=== PATIENT | female | born 1985 | race Caucasian/White ===

== ENCOUNTER 2017-01-14 09:56 | Emergency (ER) | payer BC ==
[~2017-01-14] VITALS: Ht 167.6 cm; Wt 88.7 kg
[2017-01-14 09:59] VITALS: TEMP 37; Ht 167.6 cm; Wt 88.7 kg
[2017-01-14] MEDS ORDERED: ONDANSETRON INJ 2 MG/ML 2 ML VIAL IV STA (10:12)
[2017-01-14] MEDS ORDERED: SODIUM CHLORIDE 0.9% 1000ML 1,000 ML IV STA (10:12)
--- NOTE | 2017-01-14 10:17 | EMERGENCY ROOM VISIT NOTE ---
History First contact with patient: 10:05 Chief Complaint: FLU LIKE SX Stated Complaint: V,N, CHILLS, ACHES History of Present Illness The patient is a 31 year old female who presents to the Emergency Room with complaints of flulike symptoms. The patient states her symptoms started 2 days ago. She states she initially had arthralgias, myalgias, chills, nausea and fever with temperature over 100F. She states that today she developed vomiting and diarrhea. She states she has taken Pepto-Bismol. She has not had Tylenol or ibuprofen since last night. She denies any earache, sore throat or cough. She denies any pain in her chest or trouble breathing. She denies any recent antibiotic use or travel. Review of Systems A 10 system review of systems was completed with positives and pertinent negatives listed in the HPI. Past Medical/Surgical History Patient denies Social History Smoking Status: Never Smoker Housing Status: lives with family Current/Historical Medications Scheduled Control Pills ( Control Pills), 1 TAB PO DAILY Ondasetron Odt (Zofran Odt), 4 MG SL Q6H Allergies Coded Allergies: No Known Allergies (Unverified , 01/14/17) Physical Exam Vital Signs Date Time Temp Pulse Resp B/P Pulse Ox O2 Delivery O2 Flow Rate FiO2 01/14/17 12:28 74 16 134/74 98 01/14/17 09:59 37.0 119 18 148/106 98 Room Air Physical Exam VITALS: Vitals are noted on the nurse's note and reviewed by myself. Vital signs stable. The patient is afebrile. GENERAL: This is a 31-year-old female, in no acute distress, nondiaphoretic, well-developed well-nourished. SKIN: The skin was without rashes, erythema, edema, or bruising. There is no tenting of the skin. Capillary reflex less than 2 seconds. HEAD: Normocephalic atraumatic. EARS: External auditory canals clear, tympanic membranes pearly casanova without erythema or effusion bilaterally. EYES: Pupils equal round and reactive to light and accommodation. Conjunctivae without injection, sclerae without icterus. Extraocular movements intact. NOSE: Patent, turbinates without inflammation or discharge. MOUTH: Mucous membranes moist. Tonsils are not enlarged. Pharynx without erythema or exudate. Uvula midline. Airway patent. Tongue does not deviate. NECK: Supple without nuchal rigidity. No JVD. HEART: Regular rate and rhythm without murmurs gallops or rubs. LUNGS: Clear to auscultation bilaterally without wheezes, rales or rhonchi. No retractions or accessory muscle use. ABDOMEN: Positive bowel sounds x 4. Soft, mild diffuse tenderness, without masses or organomegaly. MUSCULOSKELETAL: No muscle atrophy, erythema, or edema noted. Full range of motion in all extremities. Normal gait. Strength 5/5 throughout. NEURO: Patient was alert and oriented to person place and time. No focal neurological deficits. Medical Decision & Procedures Laboratory Results 01/14/17 10:15 Red Blood Count 5.45, Mean Corpuscular Volume 81.1, Mean Corpuscular Hemoglobin 29.0, Mean Corpuscular Hemoglobin Concent 35.7, Mean Platelet Volume 10.2, Neutrophils (%) (Auto) 84.0, Lymphocytes (%) (Auto) 7.6, Monocytes (%) (Auto) 7.7, Eosinophils (%) (Auto) 0.4, Basophils (%) (Auto) 0.1, Neutrophils # (Auto) 9.54, Lymphocytes # (Auto) 0.86, Monocytes # (Auto) 0.87, Eosinophils # (Auto) 0.04, Basophils # (Auto) 0.01 01/14/17 10:15 Test 01/14/17 00:00 01/14/17 10:05 01/14/17 10:15 Urine Color YELLOW Urine Appearance SL CLOUDY (CLEAR) Urine pH 6.0 (4.5-7.5) Urine Specific [place] >= 1.030 (1.000-1.030) Urine Protein NEG (NEG) Urine Glucose (UA) NEG (NEG) Urine Ketones 3+ (NEG) Urine Occult Blood 1+ (NEG) Urine Nitrite NEG (NEG) Urine Bilirubin NEG (NEG) Urine Urobilinogen NEG (NEG) Urine Leukocyte Esterase TRACE (NEG) Urine WBC (Auto) 10-30 /hpf (0-5) Urine RBC (Auto) 5-10 /hpf (0-4) Urine Hyaline Casts (Auto) 10-30 /lpf (0-5) Urine Epithelial Cells (Auto) >30 /lpf (0-5) Urine Bacteria (Auto) 3+ (NEG) Urine Test NEG (NEG) Influenza Type A Antigen Neg for Influ A (NEG) Influenza Type B Antigen Neg for Influ B (NEG) White Blood Count 11.34 K/uL (4.8-10.8) Red Blood Count 5.45 M/uL (4.2-5.4) Hemoglobin 15.8 g/dL (12.0-16.0) Hematocrit 44.2 % (37-47) Mean Corpuscular Volume 81.1 fL (80-100) Mean Corpuscular Hemoglobin 29.0 pg (25-34) Mean Corpuscular Hemoglobin Concent 35.7 g/dl (32-36) Platelet Count 222 K/uL (130-400) Mean Platelet Volume 10.2 fL (7.4-10.4) Neutrophils (%) (Auto) 84.0 % Lymphocytes (%) (Auto) 7.6 % Monocytes (%) (Auto) 7.7 % Eosinophils (%) (Auto) 0.4 % Basophils (%) (Auto) 0.1 % Neutrophils # (Auto) 9.54 K/uL (1.4-6.5) Lymphocytes # (Auto) 0.86 K/uL (1.2-3.4) Monocytes # (Auto) 0.87 K/uL (0.11-0.59) Eosinophils # (Auto) 0.04 K/uL (0-0.5) Basophils # (Auto) 0.01 K/uL (0-0.2) RDW Standard Deviation 37.8 fL (36.4-46.3) RDW Coefficient of Variation 12.8 % (11.5-14.5) Immature Granulocyte % (Auto) 0.2 % Immature Granulocyte # (Auto) 0.02 K/uL (0.00-0.02) Anion Gap 15.0 mmol/L (3-11) Est Creatinine Clear Calc Drug Dose 115.7 ml/min Estimated GFR () 115.6 Estimated GFR (Non- 99.8 BUN/Creatinine Ratio 11.8 (10-20) Calcium Level 9.0 mg/dl (8.5-10.1) Total Bilirubin 0.4 mg/dl (0.2-1) Aspartate Amino Transf (AST/SGOT) 20 U/L (15-37) Alanine Aminotransferase (ALT/SGPT) 23 U/L (12-78) Alkaline Phosphatase 64 U/L (45-117) Total Protein 7.7 gm/dl (6.4-8.2) Albumin 3.6 gm/dl (3.4-5.0) Globulin 4.1 gm/dl (2.5-4.0) Albumin/Globulin Ratio 0.9 (0.9-2) Lipase 79 U/L (73-393) Chemistry Specimen Hemolysis Medications Administered Medications (Trade) Dose Ordered Sig/Arley Route Start Time Stop Time Status Last Admin Dose Admin Sodium Chloride (Nss 1000ml) 1,000 ml @ 999 mls/hr Q1H1M STAT IV 01/14/17 10:12 01/14/17 11:12 DC 01/14/17 10:26 999 MLS/HR Ondansetron HCl (Zofran Inj) 4 mg NOW STAT IV 01/14/17 10:12 01/14/17 10:13 DC 01/14/17 10:12 4 MG ED Course The patient was seen and examined. Previous visits were reviewed. She has a very mild leukocytosis of 11.34. She does not have any significant electrolyte abnormalities. Lipase was not elevated. Urinalysis suggests contamination. The patient does not have any urinary symptoms. We will await urinary culture. Urine test was negative. Influenza was negative. The patient was hydrated with 1 L normal saline and given 4 mg IV Zofran. Her symptoms completely resolved. The patient presents to the emergency department with nausea, vomiting, diarrhea and diffuse crampy abdominal pain. She weighs treated as above. The patient's symptoms completely resolved and I did do a repeat abdominal examination. The patient had no tenderness to palpation whatsoever after the above treatment. This likely represents a viral gastroenteritis. The patient was given a prescription for Zofran. She should return with any localized abdominal pain, fever or worsening symptoms. Otherwise, she should follow-up with her family doctor as needed. Medical Decision DIFFERENTIAL DIAGNOSIS: Hepatitis, cholecystitis, cholangitis, biliary colic, pancreatitis, pneumonia, subdiaphragmatic abscess, appendicitis, inguinal hernia , nephrolithiasis, inflammatory bowel disease, mesenteric adenitis, peptic ulcer disease, GERD, gastritis, pancreatitis, myocardial infarction, pericarditis, ruptured aortic aneurysm, appendicitis, gastroenteritis, bowel obstruction, splenic infarct, diverticulitis, mesenteric ischemia, metabolic, peritonitis, among others. Impression Primary Impression: Nausea vomiting and diarrhea Departure Information Dispostion Home / Self-Care Condition GOOD Prescriptions Ondasetron Odt (ZOFRAN ODT) 4 Mg Tab 4 MG SL Q6H for Nausea, #10 TAB Prov: Karen Rodriguez PA-C 01/14/17 Referrals No Doctor, Assigned (PCP) Patient Instructions ED Nausea Vomiting, My [facility] Additional Instructions Zofran as prescribed, as needed for nausea and vomiting [place] diet and advance the diet as tolerated over the next 24-48 hours Return with any fevers, localized abdominal pain or generalized worsening symptoms Otherwise, follow up with your family doctor next week for recheck
[2017-01-14] MEDS ORDERED: BCPILLS PO (10:28)
[2017-01-14 10:31] LABS: BASO % 0.1 %; BASO ABS # 0.01 K/uL (0-0.2); COMPLETE YES; EOS % 0.4 %; HEMATOCRIT 44.2 % (37-47); IG% 0.2 %; LYMPH % 7.6 %; LYMPH ABS # 0.86 K/uL (1.2-3.4); MEAN CELL VOLUME 81.1 fL (80-100); MEAN CORPUSCULAR HGB CONC 35.7 g/dl (32-36); MEAN PLATELET VOLUME 10.2 fL (7.4-10.4); MONO % 7.7 %; PLATELET COUNT 222 K/uL (130-400); RED BLOOD COUNT 5.45 M/uL (4.2-5.4); WHITE BLOOD COUNT 11.34 K/uL (4.8-10.8)
[2017-01-14 11:15] LABS: ALB/GLOB RATIO 0.9 (0.9-2); BUN/CREATININE RATIO 11.8 (10-20); CREATININE 0.79 mg/dl (0.60-1.20)
[2017-01-14 11:27] LABS: POTASSIUM 3.6 mmol/L (3.5-5.1)
[2017-01-14 12:02] LABS: URINE APPEARANCE SL CLOUDY (CLEAR); URINE BILIRUBIN NEG (NEG); URINE COLOR YELLOW; URINE NITRITE NEG (NEG); URINE SPECIFIC GRAVITY >= 1.030 (1.000-1.030); UROBILINOGEN NEG (NEG)
[2017-01-14] MEDS ORDERED: ONDA4TAB10 SL (12:04)
[2017-01-14 12:06] LABS: MANUAL MICROSCOPIC REQUIRED? NO; REVIEW REQ? YES; URINE EPITHELIAL CELL AUTO >30 /lpf (0-5)
[2017-01-14 12:14] LABS: ZZUR CULT IF INDIC CLEAN CATCH YES
[2017-01-14 12:28] VITALS: BP 134/74; PULSE 74; O2SAT 98
== END 2017-01-14 12:40 | disposition home or self-care (01) ==
LOC: C.EDB 09:59
DX: R11.2 Nausea with vomiting, unspecified (principal); R19.7 Diarrhea, unspecified; Z79.3 Long term (current) use of hormonal contraceptives

== ENCOUNTER 2023-05-06 17:36 | Inpatient (IN) ==
[2023-05-06] MEDS ORDERED: LIDOCAINE 1% LOCAL 20 ML VIAL INFIL PRN (17:48)
[2023-05-06] MEDS ORDERED: OXYTOCIN 30 UNITS/500 ML BAG IV PRN ×2 (17:48→18:09)
--- NOTE | 2023-05-06 18:12 | History & Physical Report ---
Date of Service May 06, 2023 Assessment & Plan (1) Supervision of elderly primigravida: Plan: IUP at 40-3/7 weeks with grossly ruptured membranes for clear fluid. We will allow to ambulate for 2 hours and if no regular contraction pattern at that time, we will begin Pitocin augmentation. Epidural when requested. Anticipate vaginal . History of Present Illness Primary Care Provider: Alina Gilliland MD Patient is a 38 yo female EDC 05/03/23 who presents at 40 3/7 weeks with SPROM for clear fluid at about 5pm today. no contractions or cramping yet. is complicated by obesity for which she had growth scans and the infant is known to to have appropriate growth. She also is on metoprolol for recurrent PVCs. GBS is negative. Blood type is O+. Allergies Allergy/AdvReac Type Severity Reaction Status Date / Time No Known Drug Allergies Allergy Verified 05/03/23 08:30 Home Medications Medication Instructions Recorded Confirmed Type prenat.vits,camden,nyu-iryq-rdolf PO 07/17/22 05/03/23 History cholecalciferol (vitamin D3) PO 09/14/22 05/03/23 History levothyroxine PO 09/14/22 05/03/23 History magnesium PO 02/09/23 05/03/23 History metoprolol tartrate PO PRN PVC's 02/09/23 05/03/23 History potassium chloride PO 02/09/23 05/03/23 History aspirin 81 mg tablet,delayed 81 mg PO DAILY 02/23/23 05/06/23 History release (Adult Low Dose Aspirin) Patient History Surgical History H/O wisdom tooth extraction Hx of cholecystectomy Family History Other Heart disease Denies family history of Ovarian cancer Breast cancer Colorectal cancer Social History Smoking Status: Never smoker Do You Dip or Chew Tobacco: No; Hx Alcohol Use: No Hx Substance Use: No Preferred Language: Urdu Communication Ability: Effective Sign Language Interpreter Required: No Beliefs That Will Affect Care: None marital status: marital status details: Prashant (42) [phone] Current Living Situation: Spouse Current Living Situation Comment: lives with spouse, 1 dog. 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 Other Information That Helps Us Care for You: No Feels Safe at Home: Yes Safety Concerns: Feels Safe At This Time Assistive Devices: None Review of Systems All systems reviewed & are unremarkable except as noted in HPI & below Physical Exam Constitutional: WD/WN, vitals as above Psychiatric: A+Ox3, euthymic affect Genitourinary: OB Exam Abdomen: + vertex, + estimated weight (7-8 pounds) and + irregular contractions Manual OB Exam: + cervical dilation 1 cm (1.5 cm), + cervical effacement 70%, + station -2 and + amniotic fluid (grossly ruptured) clear Results & Data Vital Signs (Past 12 Hours) Vital Signs Pulse BP 05/06/23 18:03 93 H 157/74 H Coding Level of Care Code None Diagnoses Supervision of elderly primigravida O09.519
[2023-05-06 18:47] LABS: Hemoglobin 13.6 g/dl (12.0-16.0); Mean Corpuscular Hemoglobin 28.2 pg (25.0-34.0); Mean Corpuscular Volume 82.8 fL (80.0-100.0); Mean Platelet Volume 11.1 fL (9.4-12.4); Platelet Count 248 K/uL (130-400); RDW Coefficient of Variation 14.6 % (11.5-14.5); RDW Standard Deviation 43.8 fL (36.4-46.3); Red Blood Count 4.83 M/uL (4.20-5.40); White Blood Count 11.15 K/ul (4.8-10.8)
[2023-05-06] MEDS: LACTATED RINGER'S 1,000 ML IV PRN (20:28)
[2023-05-06] MEDS ORDERED: SODIUM CHLORIDE 0.9% PF INJ 10 ML VIAL ONE (23:08)
[2023-05-06] MEDS ORDERED: LIDOCAINE 2%/EPINEPHRINE 1:200,000 20 ML PF ONE (23:08)
[2023-05-06] MEDS ORDERED: BUPIVACAINE 0.25% PF 30 ML VIAL ONE (23:08)
[2023-05-06] MEDS ORDERED: ePHEDrine sulfate 50 MG/ML AMP ONE (23:08)
[2023-05-06] MEDS ORDERED: fentaNYL citrate PF 100 MCG/2 ML VIAL ONE (23:08)
[2023-05-06] MEDS ORDERED: fentaNYL 2MCG/ML ROPIVACAINE 1.25MG/ML 100 ML BAG EPI ONE (23:09)
--- NOTE | 2023-05-07 00:01 | Anesthesiology Consultation ---
Date of Service May 07, 2023 Assessment & Plan Chart Review Chart Review: Patient NOT seen in Pre Admission Testing and Acceptable Risk for Labor Epidural Consults Requested none ASA ASA2 Proposed Anesthesia Anesthesia Type: Labor Epidural Risk / Benefits Reviewed With: PT / POA / Parent / Guardian, Accepts Plan and Informed Consent Obtained History Height/Weight Height: 5 ft 6 in Weight: 254 kg Allergies Allergy/AdvReac Type Severity Reaction Status Date / Time No Known Drug Allergies Allergy Verified 05/03/23 08:30 Medications Home Medications Medication Instructions Recorded Confirmed Last Taken prenat.vits,camden,ilj-zsol-uymig PO 07/17/22 05/03/23 05/06/23 12:00 cholecalciferol (vitamin D3) PO 09/14/22 05/03/23 05/02/23 levothyroxine PO 09/14/22 05/03/23 05/06/23 06:00 magnesium PO 02/09/23 05/03/23 05/05/23 14:00 metoprolol tartrate PO PRN PVC's 02/09/23 05/03/23 05/05/23 23:00 potassium chloride PO 02/09/23 05/03/23 05/05/23 14:00 aspirin 81 mg tablet,delayed 81 mg PO DAILY 02/23/23 05/06/23 05/06/23 12:00 release (Adult Low Dose Aspirin) Active Medications Generic Name Dose Route Start Last Admin Trade Name Freq PRN Reason Stop Dose Admin Lactated Ringer's 1,000 mls @ 125 mls/hr 05/06/23 17:48 05/06/23 23:11 Lr IV 05/08/23 17:47 999 mls/hr .Q8H PRN Infusion L&D Protocol Protocol Oxytocin 30 units in 500 mls @ 4 mls/hr 05/06/23 18:09 05/06/23 21:00 Pitocin IV 05/08/23 18:08 0.24 units/hr .Q24H PRN 4 mls/hr Labor Induction/Augmentation Titration Protocol 0.24 UNITS/HR Exercise / Class Metabolic Activity II 4-5 Yardwork/Stairs/Walk up hill Past Family History Family History Other Heart disease Denies family history of Ovarian cancer Breast cancer Colorectal cancer Past Surgical History Surgical History H/O wisdom tooth extraction Hx of cholecystectomy Past Anesthesia History No Hx of Anesthesia Complications and No Family Hx of Anesthesia Complications History of PONV No Hx of PONV and No Hx of Motion Sickness Social History Smoking Status: Never smoker Do You Dip or Chew Tobacco: No Hx Alcohol Use: No Hx Substance Use: No Physical Exam Vital Signs Last Vital Signs Temp 37.0 C 05/06/23 21:35 Pulse 90 05/06/23 23:59 Resp 18 05/06/23 19:36 BP 128/76 05/06/23 23:59 Pulse Ox 99 05/06/23 23:58 ENMT Mouth: no dentition abnormality Thyromental Distance: > or= 3.5 Finger Breadths Mallampati Class: II Neck normal visual inspection Respiratory normal respiratory effort Auscultation: lungs clear to auscultation bilaterally Cardiovascular Rate/Rhythm: regular rate and regular rhythm Psychiatric Orientation: alert Testing Laboratory Results 05/06/23 18:28
[2023-05-07] MEDS ORDERED: BUPIVACAINE 0.25% PF 30 ML VIAL EPI STA (00:02)
[2023-05-07] MEDS ORDERED: diphenhydrAMINE 50 MG/ML VIAL IV PRN ×2 (00:02→17:47)
[2023-05-07] MEDS ORDERED: ePHEDrine sulfate 50 MG/ML AMP IV PRN ×2 (00:02→17:47)
[2023-05-07] MEDS ORDERED: NALOXONE HCL 0.4 MG/1 ML VIAL/CARP IV PRN ×2 (00:02→17:47)
[2023-05-07] MEDS ORDERED: NALOXONE HCL 1 MG in SODIUM CHLORIDE 0.9% 1000ML 1,000 ML IV PRN ×2 (00:02→17:47)
[2023-05-07] MEDS ORDERED: BUPIVACAINE 0.25% PF 30 ML VIAL EPI PRN (00:02)
[2023-05-07] MEDS ORDERED: fentaNYL citrate PF 100 MCG/2 ML VIAL EPI STA (00:02)
[2023-05-07] MEDS ORDERED: LIDOCAINE 2% MPF LOCAL 5 ML VIAL EPI PRN (00:02)
[2023-05-07] MEDS ORDERED: NALBUPHINE HCL INJ 10 MG/ML AMP IV PRN ×2 (00:02→17:47)
[2023-05-07] MEDS ORDERED: ROPIVACAINE 0.5% PF 5 MG/ML 20 ML VIAL EPI PRN (00:02)
[2023-05-07] MEDS ORDERED: LIDOCAINE 2%/EPINEPHRINE 1:200,000 20 ML PF EPI STA (00:02)
[2023-05-07] MEDS ORDERED: SODIUM CHLORIDE 0.9% PF INJ 10 ML VIAL EPI PRN (00:02)
[2023-05-07] MEDS ORDERED: SODIUM CHLORIDE 0.9% PF INJ 10 ML VIAL EPI STA (00:02)
[2023-05-07] MEDS ORDERED: fentaNYL citrate PF 100 MCG/2 ML VIAL EPI PRN (00:02)
[2023-05-07] MEDS: LACTATED RINGER'S 1,000 ML IV PRN ×2 (00:22→07:57)
[2023-05-07] MEDS: ONDANSETRON INJ 2 MG/ML 2 ML VIAL IV PRN ×2 (00:30→06:42)
--- NOTE | 2023-05-07 06:29 | Obstetrical Progress Note ---
Date of Service May 07, 2023 Assessment & Plan Admission and Anticipated Discharge Date Admission Date: May 06, 2023 Review of Systems Constitutional: no fever, no chills and no sweats Respiratory: no dyspnea Cardiovascular: no chest pain and no palpitations Genitourinary: no dysuria Neurologic: no headache(s) Physical Exam Physical Exam: Results & Data Vital Signs (Past 12 Hours) Vital Signs Temp Pulse Resp BP Pulse Ox 05/06/23 19:36 36.6 C 18 05/07/23 06:23 82 100 05/07/23 06:18 96 H 100 05/07/23 06:15 84 131/77 05/07/23 06:13 96 H 100 05/07/23 06:08 97 H 100 05/07/23 06:06 92 H 92 05/07/23 06:03 78 100 05/07/23 06:00 18 05/07/23 06:00 18 05/07/23 06:01 75 127/73 05/07/23 05:58 99 H 100 05/07/23 05:53 89 100 05/07/23 05:48 71 100 05/07/23 05:44 73 131/74 05/07/23 05:43 73 100 05/07/23 05:38 78 100 05/07/23 05:33 79 100 05/07/23 05:30 70 18 131/74 05/07/23 05:28 88 100 05/07/23 05:23 76 100 05/07/23 05:18 97 H 100 05/07/23 05:17 70 121/73 05/07/23 05:13 64 99 05/07/23 05:08 71 98 05/07/23 05:03 83 99 05/07/23 05:00 79 18 117/72 05/07/23 04:58 72 98 05/07/23 04:53 75 99 05/07/23 04:48 81 100 05/07/23 04:44 77 121/71 05/07/23 04:43 71 98 05/07/23 04:38 66 99 05/07/23 04:00 18 05/07/23 04:00 18 05/07/23 04:33 66 99 05/07/23 04:29 74 119/72 05/07/23 04:28 69 98 05/07/23 04:23 73 99 05/07/23 04:18 74 98 05/07/23 04:16 68 120/70 05/07/23 04:13 71 99 05/07/23 04:08 74 99 05/07/23 04:03 68 99 05/07/23 03:59 75 118/73 05/07/23 03:58 78 99 05/07/23 03:53 75 99 05/07/23 03:48 73 100 05/07/23 03:45 65 123/74 05/07/23 03:43 68 100 05/07/23 03:38 68 100 05/07/23 03:33 75 100 05/07/23 03:30 78 18 128/77 05/07/23 03:28 68 100 05/07/23 03:23 79 100 05/07/23 03:18 80 100 05/07/23 03:16 78 131/77 05/07/23 03:13 86 100 05/07/23 03:08 67 100 05/07/23 03:00 16 05/07/23 03:00 16 05/07/23 03:03 66 100 05/07/23 02:59 66 117/68 05/07/23 02:58 73 100 05/07/23 02:53 64 100 05/07/23 02:48 67 99 05/07/23 02:45 64 119/62 05/07/23 02:43 66 100 05/07/23 02:38 67 100 05/07/23 02:33 75 100 05/07/23 02:30 67 18 121/73 05/07/23 02:28 74 100 05/07/23 02:23 77 100 05/07/23 02:18 72 100 05/07/23 02:00 18 05/07/23 02:00 18 05/07/23 02:15 72 122/71 05/07/23 02:10 36.6 C 05/07/23 02:13 79 100 05/07/23 02:08 94 H 100 05/07/23 02:03 75 100 05/07/23 01:58 60 100 05/07/23 01:59 79 118/76 05/07/23 01:53 83 100 05/07/23 01:48 72 100 05/07/23 01:44 68 113/69 05/07/23 01:43 63 99 07/10/23 01:38 69 100 05/07/23 01:30 18 05/07/23 01:30 18 05/07/23 01:33 69 100 05/07/23 01:31 71 112/67 05/07/23 01:28 73 98 05/07/23 01:23 76 97 05/07/23 01:18 63 98 05/07/23 01:14 80 114/65 05/07/23 01:13 79 100 05/07/23 01:08 88 100 05/07/23 01:06 73 93 05/07/23 00:55 18 05/07/23 00:55 18 05/07/23 01:03 91 H 98 05/07/23 01:01 88 120/66 05/07/23 00:58 82 98 05/07/23 00:53 75 98 05/07/23 00:48 88 97 05/07/23 00:44 73 116/65 05/07/23 00:43 81 96 05/07/23 00:25 18 05/07/23 00:25 18 05/07/23 00:40 20 05/07/23 00:40 20 05/07/23 00:00 20 05/07/23 00:00 20 05/07/23 00:10 18 05/07/23 00:10 18 05/07/23 00:38 97 H 96 05/07/23 00:05 36.6 C 18 05/07/23 00:33 98 H 97 05/07/23 00:30 86 118/70 05/07/23 00:28 85 100 05/07/23 00:23 106 H 98 05/07/23 00:18 96 H 99 05/07/23 00:13 98 05/07/23 00:13 99 H 05/07/23 00:13 91 H 127/77 05/07/23 00:08 95 H 99 05/07/23 00:07 87 130/74 05/07/23 00:03 107 H 99 05/07/23 00:01 89 121/71 05/06/23 23:58 85 99 05/06/23 23:59 90 128/76 05/06/23 23:57 82 134/77 05/06/23 23:54 85 140/79 05/06/23 23:53 89 100 07/09/23 23:48 95 H 100 05/06/23 23:43 96 H 100 05/06/23 23:38 91 H 100 05/06/23 23:33 87 100 05/06/23 23:28 89 100 05/06/23 23:23 97 H 100 05/06/23 23:19 80 132/84 05/06/23 23:18 82 100 05/06/23 21:35 37.0 C 05/06/23 19:47 93 H 131/84 PG Care Time/CCT Total # of Minutes Spent Total Time Spent with Patient: Total time spent is greater than 50% in coordination of care (as documented) at patient's floor/unit and/or counseling patient: Coding Diagnoses
[2023-05-07] MEDS: fentaNYL 2MCG/ML ROPIVACAINE 1.25MG/ML 100 ML BAG EPI PRN ×2 (08:18→15:39)
--- NOTE | 2023-05-07 08:27 | Labor Progress Brief Note ---
Date of Service May 07, 2023 Subjective Has epidural, contractions well controlled but does have constant low back ache. Denies needs or wants at this time. Assessment & Plan (1) Normal labor: Plan: SROM with onset of labor and augmentation of same, with epidural in place, and reassuring monitoring at this time. Continue current care. Emotional support and reassurance provided. Note that patient has had anxiety about process since arrival per signout from prior covering MD and it is not likely related to acute events. Admission and Anticipated Discharge Date Admission Date: May 06, 2023 Physical Exam Physical Exam: R decubitus, tearful on my arrival to room. When asked she notes this is due to anxiety about the labor and delivery process. Reassured all appears to be moving along normally. Discusses she is expecting a boy and has not settled on the final name yet. Genitourinary: FHT Cat 1 [place] Q2 Cervix check discussed but pt not feeling urge to push, and is already ruptured / on pit / has no indications to change mgmt at this time, so declines exam. Results & Data Vital Signs (Past 12 Hours) Vital Signs Temp Pulse Resp BP Pulse Ox 05/07/23 08:18 69 100 05/07/23 08:15 70 127/84 05/07/23 08:13 79 100 05/07/23 08:08 86 100 05/07/23 08:00 18 05/07/23 08:00 18 05/07/23 08:03 82 100 05/07/23 07:59 89 137/81 05/07/23 07:58 92 H 100 05/07/23 07:53 94 H 100 05/07/23 07:48 90 100 05/07/23 07:45 80 18 134/82 05/07/23 07:43 82 100 05/07/23 07:38 84 100 05/07/23 07:33 83 100 05/07/23 07:30 92 H 136/85 05/07/23 07:28 94 H 100 05/07/23 07:23 78 100 05/07/23 07:18 73 98 05/07/23 07:15 67 18 122/64 05/07/23 07:13 71 99 05/07/23 07:08 75 99 05/07/23 07:03 81 100 05/07/23 07:00 98.6 F 74 18 125/61 05/07/23 06:58 80 100 05/07/23 06:53 72 100 05/07/23 06:48 74 100 05/07/23 05:45 98.4 F 05/07/23 06:46 75 121/71 05/07/23 06:43 80 100 05/07/23 06:38 74 100 05/07/23 06:30 18 05/07/23 06:30 18 05/07/23 06:33 79 99 05/07/23 06:31 75 122/58 L 05/07/23 06:28 72 100 05/07/23 06:23 82 100 05/07/23 06:18 96 H 100 05/07/23 06:15 84 131/77 05/07/23 06:13 96 H 100 05/07/23 06:08 97 H 100 05/07/23 06:06 92 H 92 05/07/23 06:03 78 100 05/07/23 06:00 18 05/07/23 06:00 18 05/07/23 06:01 75 127/73 05/07/23 05:58 99 H 100 05/07/23 05:53 89 100 05/07/23 05:48 71 100 05/07/23 05:44 73 131/74 05/07/23 05:43 73 100 05/07/23 05:38 78 100 05/07/23 05:33 79 100 05/07/23 05:30 70 18 131/74 05/07/23 05:28 88 100 05/07/23 05:23 76 100 05/07/23 05:18 97 H 100 05/07/23 05:17 70 121/73 05/07/23 05:13 64 99 05/07/23 05:08 71 98 05/07/23 05:03 83 99 05/07/23 05:00 79 18 117/72 05/07/23 04:58 72 98 05/07/23 04:53 75 99 05/07/23 04:48 81 100 05/07/23 04:44 77 121/71 05/07/23 04:43 71 98 05/07/23 04:38 66 99 05/07/23 04:00 18 05/07/23 04:00 18 05/07/23 04:33 66 99 05/07/23 04:29 74 119/72 05/07/23 04:28 69 98 05/07/23 04:23 73 99 05/07/23 04:18 74 98 05/07/23 04:16 68 120/70 05/07/23 04:13 71 99 05/07/23 04:08 74 99 05/07/23 04:03 68 99 05/07/23 03:59 75 118/73 05/07/23 03:58 78 99 05/07/23 03:53 75 99 05/07/23 03:48 73 100 05/07/23 03:45 65 123/74 05/07/23 03:43 68 100 05/07/23 03:38 68 100 05/07/23 03:33 75 100 05/07/23 03:30 78 18 128/77 05/07/23 03:28 68 100 05/07/23 03:23 79 100 05/07/23 03:18 80 100 05/07/23 03:16 78 131/77 05/07/23 03:13 86 100 05/07/23 03:08 67 100 05/07/23 03:00 16 05/07/23 03:00 16 05/07/23 03:03 66 100 05/07/23 02:59 66 117/68 05/07/23 02:58 73 100 05/07/23 02:53 64 100 05/07/23 02:48 67 99 05/07/23 02:45 64 119/62 05/07/23 02:43 66 100 05/07/23 02:38 67 100 05/07/23 02:33 75 100 05/07/23 02:30 67 18 121/73 05/07/23 02:28 74 100 05/07/23 02:23 77 100 05/07/23 02:18 72 100 05/07/23 02:00 18 05/07/23 02:00 18 05/07/23 02:15 72 122/71 05/07/23 02:10 97.9 F 05/07/23 02:13 79 100 05/07/23 02:08 94 H 100 05/07/23 02:03 75 100 05/07/23 01:58 60 100 05/07/23 01:59 79 118/76 05/07/23 01:53 83 100 05/07/23 01:48 72 100 05/07/23 01:44 68 113/69 05/07/23 01:43 63 99 05/07/23 01:38 69 100 05/07/23 01:30 18 05/07/23 01:30 18 05/07/23 01:33 69 100 05/07/23 01:31 71 112/67 05/07/23 01:28 73 98 05/07/23 01:23 76 97 05/07/23 01:18 63 98 05/07/23 01:14 80 114/65 05/07/23 01:13 79 100 05/07/23 01:08 88 100 05/07/23 01:06 73 93 05/07/23 00:55 18 05/07/23 00:55 18 05/07/23 01:03 91 H 98 05/07/23 01:01 88 120/66 05/07/23 00:58 82 98 05/07/23 00:53 75 98 05/07/23 00:48 88 97 05/07/23 00:44 73 116/65 05/07/23 00:43 81 96 05/07/23 00:25 18 05/07/23 00:25 18 05/07/23 00:40 20 05/07/23 00:40 20 05/07/23 00:00 20 05/07/23 00:00 20 05/07/23 00:10 18 05/07/23 00:10 18 05/07/23 00:38 97 H 96 05/07/23 00:05 97.9 F 18 05/07/23 00:33 98 H 97 05/07/23 00:30 86 118/70 05/07/23 00:28 85 100 05/07/23 00:23 106 H 98 05/07/23 00:18 96 H 99 05/07/23 00:13 98 05/07/23 00:13 99 H 05/07/23 00:13 91 H 127/77 05/07/23 00:08 95 H 99 05/07/23 00:07 87 130/74 05/07/23 00:03 107 H 99 05/07/23 00:01 89 121/71 05/06/23 23:58 85 99 05/06/23 23:59 90 128/76 05/06/23 23:57 82 134/77 05/06/23 23:54 85 140/79 05/06/23 23:53 89 100 05/06/23 23:48 95 H 100 05/06/23 23:43 96 H 100 05/06/23 23:38 91 H 100 05/06/23 23:33 87 100 05/06/23 23:28 89 100 05/06/23 23:23 97 H 100 05/06/23 23:19 80 132/84 05/06/23 23:18 82 100 05/06/23 21:35 98.6 F Coding Level of Care Code None Diagnoses Normal labor O80; Z37.9
[2023-05-07] MEDS ORDERED: NURSING L&D Epidural Breakthrough Pain Update ONE (11:36)
[2023-05-07] MEDS ORDERED: LIDOCAINE 2%/EPINEPHRINE 1:200,000 20 ML PF ONE (16:39)
[2023-05-07] MEDS ORDERED: LACTATED RINGER'S 1,000 ML IV SCH ×2 (16:45→19:00)
[2023-05-07] MEDS ORDERED: MoRPHine SULFATE PF 1 MG/ML 10 ML AMP/VIAL ONE (16:46)
[2023-05-07] MEDS ORDERED: CITRIC ACID/SODIUM CITRATE 15 ML UDC ONE (16:50)
[2023-05-07] MEDS ORDERED: AZITHROMYCIN 500 MG in DEXTROSE 5% 250 ML IV ONE (17:00)
[2023-05-07] MEDS ORDERED: PHENYLEPHRINE 100MCG/ML 5ML SYR ONE (17:09)
[2023-05-07] MEDS ORDERED: ONDANSETRON INJ 2 MG/ML 2 ML VIAL ONE (17:09)
[2023-05-07] MEDS ORDERED: ONDANSETRON INJ 2 MG/ML 2 ML VIAL IV PRN ×2 (17:47→18:56)
[2023-05-07] MEDS ORDERED: NALOXONE HCL 0.08 MG in SYRINGE 1.8 ML IV PRN (17:47)
[2023-05-07] MEDS ORDERED: LACTATED RINGER'S 500 ML IV PRN (17:47)
[2023-05-07] MEDS ORDERED: MoRPHine SULFATE PF 1 MG/ML 10 ML AMP/VIAL INT SPINAL ONE (17:47)
[2023-05-07] MEDS ORDERED: MEPERIDINE HCL 25 MG/ML CARP/VIAL IV PRN (17:47)
[2023-05-07] MEDS ORDERED: SODIUM CHLORIDE 0.9% 1000ML 1,000 ML IV SCH (18:00)
[2023-05-07] MEDS ORDERED: DC INTRASPINAL MORPHINE SCH (18:00)
[2023-05-07] MEDS ORDERED: NO NARCOTICS OR SEDATIVES SCH (18:00)
[2023-05-07] MEDS ORDERED: fentaNYL citrate PF 100 MCG/2 ML VIAL ONE (18:06)
--- NOTE | 2023-05-07 18:29 | Operative Report ---
PG Post Operative Report Pre & Post Diagnosis Failure to progress failed trial of vacuum delivery I identified the patient and participated in the time-out.: Yes Procedure Operation Date: 05/07/23 04:30 Actual Procedures p Section in LD - Marian Seay MD, FACOG Surgeon Marian Seay MD, FACOG Covering Machine Operator Helper Dr. Colbert Estimated Blood Loss 700 Findings Consistent with Post-Op Diagnosis Deeply wedged in head into the pelvis normal anatomy of the uterus and ovaries and adnexa there was a very small anterior subserosal fibroid on the uterus Specimens cord blood and gases Description of Procedure Clinical Background The patient had been admitted by Dr. Cleary the evening before Pitocin been augmented for premature rupture of membranes at term the patient did progress eventually to anterior lip and was uncomfortable at that stage we did have some increased dosing of the epidural by anesthesia at that time eventually she was able to push away the anterior lip but over 2 hours she became exhausted and uncomfortable. The baby was fairly low at +1 station to +2 however some of this was molding it was difficult to drain her bladder as well with a red rubber catheter as the baby's head was fairly low I reviewed the options with the patient she was very uncomfortable at this stage and becoming exhausted and tearful the baby was low enough in the pelvis I did not think further dosing of the epidural would provide significant relief I offered the option of continuing continuing to push versus a trial of vacuum we discussed the risks of vacuum and we discussed the option of proceeding to she felt a trial of vacuum would be reasonable and so did I, as the baby's head position was low enough we attempted the VAC vacuum on four contractions however there were several pop- off's and minimal progress was made because the position was so low I had her push a couple times after this and there was some movement but it would not move past a certain point in the pelvis Note much of this documentation was done after the fact as the labor and delivery census was high and there were other deliveries going on and we were personally involved in the The active care of this patient in particular At this stage I consulted with my colleague Dr. Vieira and I called her from the office I had her examined and pushed with the patient as well she agreed with my thoughts that the baby was low but that it was not coming past a certain point in the pelvis. We did not feel further trials of vacuum would be safe or warranted at this stage I asked the patient if she could continue to push and she felt not because she was in too much pain I recommended at this stage we discussed the risks including section. Should be noted there was no excessive force used during the vacuum attempts. The patient was counseled to the nature of the procedure including alternatives such as labor. Risks were discussed including bleeding infection injury to bowel bladder ureter vessels and even baby. Deep Vein thrombosis, pulmonary embolus discussed. Breakdown of incision reviewed. Deep vein thrombosis pulmonary embolus hernia and failure of the incision to heal were discussed Patient verbalized understanding of this and was given ample time to ask questions We discussed higher chances of infection due to a long labor and attempted trial of vacuum preoperatively we gave Ancef and azithromycin. I felt we exhausted all the options to try and safely deliver vaginally but we just could not get the baby's head past a certain point and this was in combination with 2 TELEVISION NEWSCAST DIRECTOR's come to the same conclusion Dr. Colbert and myself that progressing to was our safest bet at this stage. OPERATION: I personally placed the Parmar catheter myself Regional anesthetic had been given by anesthesia patient was prepped and draped with a leftward tilt preoperative antibiotics had been given in appropriate timing by anesthesiology. Once the prep was allowed to fully dry timeout was performed. Pickups with teeth were used to test the incision area was found to be adequate for incision as the patient did not feel sharp pain. Scalpel was used to make a Pfannenstiel incision on the lower abdomen. We then cut through the subcutaneous fat down to the level of the anterior rectus sheath fascia this was cut in the midline and then extended laterally with the curved Prieto scissors. At this stage we then placed 2 Dionte clamps on the anterior as pect of the fascia. Using the curved Prieto's we are able to dissect the fascia superiorly away from the rectus muscles. Care was taken to maintain hemostasis. Dionte clamps were then placed to the inferior aspect of the anterior sheath of the fascia. Fascia was then dissected away from the rectus muscles inferiorly towards the pubic bone. A Dionte was then placed in the midline both inferiorly and superiorly. This was to allow exposure by retraction rectus muscles were in the midline with were then able to cut through the peritoneum and then enter the peritoneal cavity. Opening was enlarged to allow exposure of the peritoneal cavity both superiorly and inferiorly. Once adequate space was obtained a bladder retractor was placed to expose the lower segment Metzenbaums were used to dissect the bladder flap inferiorly away from the uterus. This was done sharply bladder retractor was then repositioned to expose the lower segment of the uterus Fresh scalpel was used to make a low transverse incision on the uterus. Uterus was then entered bluntly with the operators finger, membranes ruptured and the opening was enlarged using the operators fingers bluntly pulling superiorly and inferiorly to allow exposure. Attempted delivery from above but as mentioned the baby's head was low and I could not alleviate it from it stuck position Dr. Vieira then went from below pressing up vaginally and this allowed release of the fetuses had no excessive force was used once the head was released it was easily then delivered as it had been released from its pelvic vaginal location and baby was easily delivered through the uterine incision and the abdomen. Baby's head was then delivered mouth and then nares were suctioned and then using gentle traction the baby was fully delivered. Live vigorous infant. Fluid was clear cord clamped and cut cord gases obtained cord blood obtained baby handed to pediatrics. Placenta removed was removed with traction we ensure the entire placenta was removed with a moist lap sponge into the uterus Uterus was then exteriorized. IV Pitocin had been started by anesthesia tone improved there were no extensions the uterus was then closed using 0 Monocryl in a 2 layer closure the first layer closed in a running locked fashion from left to right and then a second closure from left to right in a running nonlocked fashion. At this stage hemostasis was excellent. Uterus was placed back in the peritoneal cavity with suction irrigation out and inspection of the uterus at this stage revealed excellent hemostasis. There was a minimal extension on the right side but this was easily identified with Koker's and closed significantly less extension than expected Retractors were removed urine color was clear at this stage, it should be noted initially it was blood-tinged but once the baby was delivered the Parmar actually started to drain significantly better is not drained well initially we did confirm location of the Parmar in the bladder and then the urine was clear completely at the end of the procedure, at this point of the case we inspected the rectus muscles they were hemostatic fascia was closed with 0 Vicryl subcut aneous fat was irrigated and closed with 3-0 Vicryl skin closed with 4-0 subcuticular Monocryl. TEDDY dressing was applied Inspected for vaginal tearing which could have happened during the attempts of vacuum or possibly on the elevation of the head during the vaginal portion of the there was a small first-degree tear was repaired with a [id number] of 3-0 Vicryl hemostasis was excellent at this stage bleeding was minimal from the uterus sponge and instrument counts were correct I attest to the content of the Intraoperative Record and any orders documented therein. Any exceptions are noted below. OB Procedure Charges 87672
--- NOTE | 2023-05-07 18:39 | Anesthesia Procedure Note ---
Date of Service May 07, 2023 Anesthesia Post Epidural Note Vital Signs Vital Signs: Temp Pulse Resp BP Pulse Ox 98.2 F 87 18 121/75 99 05/07/23 15:01 05/07/23 18:34 05/07/23 16:15 05/07/23 18:19 05/07/23 18:34 Notes Mental Status: alert / awake / arousable and participated in evaluation Nausea / Vomiting: adequately controlled Pain: adequately controlled Airway Patency, RR, SpO2: stable & adequate BP & HR: stable & adequate Hydration State: stable & adequate Neuraxial Anesthesia: was administered and sensory block is resolving Anesthetic Complications: no major complications apparent and Pt Satisfied with anesthetic care Epidural: Removed without complications and With tip intact
--- NOTE | 2023-05-07 18:39 | Anesthesiology Progress Note ---
Date of Service May 07, 2023 Anesthesia Post Procedure Vital Signs Vital Signs: Temp Pulse Resp BP Pulse Ox 05/06/23 19:36 97.9 F 18 05/07/23 18:34 87 99 05/07/23 18:29 85 98 05/07/23 18:24 75 99 05/07/23 18:19 97 05/07/23 18:19 82 05/07/23 18:19 81 121/75 05/07/23 16:15 18 05/07/23 16:15 18 05/07/23 16:00 18 05/07/23 16:00 18 05/07/23 15:15 18 05/07/23 15:15 18 05/07/23 15:00 16 05/07/23 15:00 16 05/07/23 14:45 18 05/07/23 14:45 18 05/07/23 14:30 18 05/07/23 14:30 18 05/07/23 16:45 103 H 125/67 05/07/23 15:45 130 H 18 97 05/07/23 15:40 118 H 97 05/07/23 15:35 135 H 99 05/07/23 15:30 106 H 18 97 05/07/23 15:01 98.2 F 05/07/23 15:13 106 H 80 L 05/07/23 15:11 115 H 87 L 05/07/23 15:08 101 H 98 05/07/23 15:03 118 H 98 05/07/23 14:58 107 H 99 05/07/23 14:53 123 H 100 05/07/23 14:48 134 H 99 05/07/23 14:43 103 H 100 05/07/23 14:38 121 H 100 05/07/23 14:33 100 H 100 05/07/23 14:29 107 H 136/87 05/07/23 14:28 103 H 100 05/07/23 14:23 136 H 91 05/07/23 14:18 93 H 100 05/07/23 14:16 97 H 130/85 05/07/23 14:13 102 H 100 05/07/23 13:45 18 05/07/23 13:45 18 05/07/23 13:30 18 05/07/23 13:30 18 05/07/23 14:08 114 H 100 05/07/23 14:03 82 100 05/07/23 13:58 100 05/07/23 13:58 86 05/07/23 13:59 92 H 127/75 05/07/23 13:58 79 91 05/07/23 13:53 76 100 05/07/23 13:48 79 100 05/07/23 13:43 80 99 05/07/23 13:38 80 100 05/07/23 13:33 81 98 05/07/23 13:28 77 98 05/07/23 13:23 75 97 05/07/23 13:18 97.5 F L 82 98 05/07/23 13:15 85 18 127/79 05/07/23 13:13 88 100 05/07/23 13:08 77 97 05/07/23 13:03 77 99 05/07/23 13:00 18 05/07/23 13:00 18 05/07/23 12:59 76 117/59 L 05/07/23 12:58 77 99 05/07/23 12:53 85 98 05/07/23 12:45 18 05/07/23 12:45 18 05/07/23 12:48 73 99 05/07/23 12:30 18 05/07/23 12:30 18 05/07/23 12:47 78 121/57 L 05/07/23 12:43 85 100 05/07/23 12:38 82 99 05/07/23 12:33 77 98 05/07/23 12:29 84 126/62 05/07/23 12:28 78 99 05/07/23 12:23 85 97 05/07/23 12:18 78 97 05/07/23 12:00 18 05/07/23 12:00 18 05/07/23 12:15 75 129/76 05/07/23 12:13 77 97 05/07/23 12:08 85 100 05/07/23 12:03 78 100 05/07/23 12:01 66 126/77 05/07/23 11:58 83 99 05/07/23 11:53 87 100 05/07/23 11:48 92 H 100 05/07/23 11:45 18 05/07/23 11:45 18 05/07/23 11:30 18 05/07/23 11:30 18 05/07/23 11:44 89 130/83 05/07/23 11:43 83 100 05/07/23 11:38 93 H 100 05/07/23 11:33 92 H 100 05/07/23 11:28 103 H 100 05/07/23 11:23 96 H 100 05/07/23 11:18 99 H 100 05/07/23 11:15 94 H 18 138/91 05/07/23 11:13 96 H 99 05/07/23 11:08 94 H 100 05/07/23 11:03 86 100 05/07/23 11:00 97 H 141/87 H 05/07/23 10:58 106 H 100 05/07/23 10:53 96 H 100 05/07/23 10:45 18 05/07/23 10:45 18 05/07/23 10:50 99.0 F 05/07/23 10:48 115 H 100 05/07/23 10:46 105 H 162/79 H 05/07/23 10:43 84 99 05/07/23 10:38 75 100 05/07/23 10:33 73 100 05/07/23 10:30 86 18 126/71 05/07/23 10:28 73 100 05/07/23 10:23 76 100 05/07/23 10:00 18 05/07/23 10:00 18 05/07/23 10:18 75 98 05/07/23 10:16 75 119/59 L 05/07/23 10:13 76 100 05/07/23 10:08 72 100 05/07/23 10:03 72 99 05/07/23 09:59 79 119/55 L 05/07/23 09:58 78 100 05/07/23 09:53 70 100 05/07/23 09:48 73 100 05/07/23 09:45 18 05/07/23 09:45 18 05/07/23 09:44 76 111/55 L 05/07/23 09:43 75 100 05/07/23 09:38 76 100 05/07/23 09:33 74 100 05/07/23 09:29 69 111/55 L 05/07/23 09:28 71 100 05/07/23 09:23 74 100 05/07/23 09:18 74 100 05/07/23 09:14 98.2 F 05/07/23 09:15 82 18 118/57 L 05/07/23 09:13 96 H 100 05/07/23 09:08 77 100 05/07/23 09:03 73 100 05/07/23 08:59 75 124/72 05/07/23 08:58 81 99 05/07/23 08:53 79 98 05/07/23 08:48 77 99 05/07/23 08:45 76 18 128/74 05/07/23 08:43 77 98 05/07/23 08:30 18 05/07/23 08:30 18 05/07/23 08:38 74 99 05/07/23 08:33 69 99 05/07/23 08:29 65 129/86 05/07/23 08:28 77 100 05/07/23 08:23 80 100 05/07/23 08:18 69 100 05/07/23 08:15 70 18 127/84 05/07/23 08:13 79 100 05/07/23 08:08 86 100 05/07/23 08:00 18 05/07/23 08:00 18 05/07/23 08:03 82 100 05/07/23 07:59 89 137/81 05/07/23 07:58 92 H 100 05/07/23 07:53 94 H 100 05/07/23 07:48 90 100 05/07/23 07:45 80 18 134/82 05/07/23 07:43 82 100 05/07/23 07:38 84 100 05/07/23 07:33 83 100 05/07/23 07:30 92 H 136/85 05/07/23 07:28 94 H 100 05/07/23 07:23 78 100 05/07/23 07:18 73 98 05/07/23 07:15 67 18 122/64 05/07/23 07:13 71 99 05/07/23 07:08 75 99 05/07/23 07:03 81 100 05/07/23 07:00 98.6 F 74 18 125/61 05/07/23 06:58 80 100 05/07/23 06:53 72 100 05/07/23 06:48 74 100 05/07/23 05:45 98.4 F 05/07/23 06:46 75 121/71 05/07/23 06:43 80 100 05/07/23 06:38 74 100 05/07/23 06:30 18 05/07/23 06:30 18 05/07/23 06:33 79 99 05/07/23 06:31 75 122/58 L 05/07/23 06:28 72 100 05/07/23 06:23 82 100 05/07/23 06:18 96 H 100 05/07/23 06:15 84 131/77 05/07/23 06:13 96 H 100 05/07/23 06:08 97 H 100 05/07/23 06:06 92 H 92 05/07/23 06:03 78 100 05/07/23 06:00 18 05/07/23 06:00 18 05/07/23 06:01 75 127/73 05/07/23 05:58 99 H 100 05/07/23 05:53 89 100 05/07/23 05:48 71 100 05/07/23 05:44 73 131/74 05/07/23 05:43 73 100 05/07/23 05:38 78 100 05/07/23 05:33 79 100 05/07/23 05:30 70 18 131/74 05/07/23 05:28 88 100 05/07/23 05:23 76 100 05/07/23 05:18 97 H 100 05/07/23 05:17 70 121/73 05/07/23 05:13 64 99 05/07/23 05:08 71 98 05/07/23 05:03 83 99 05/07/23 05:00 79 18 117/72 05/07/23 04:58 72 98 05/07/23 04:53 75 99 05/07/23 04:48 81 100 05/07/23 04:44 77 121/71 05/07/23 04:43 71 98 05/07/23 04:38 66 99 05/07/23 04:00 18 05/07/23 04:00 18 05/07/23 04:33 66 99 05/07/23 04:29 74 119/72 05/07/23 04:28 69 98 05/07/23 04:23 73 99 05/07/23 04:18 74 98 05/07/23 04:16 68 120/70 05/07/23 04:13 71 99 05/07/23 04:08 74 99 05/07/23 04:03 68 99 05/07/23 03:59 75 118/73 05/07/23 03:58 78 99 05/07/23 03:53 75 99 05/07/23 03:48 73 100 05/07/23 03:45 65 123/74 05/07/23 03:43 68 100 05/07/23 03:38 68 100 05/07/23 03:33 75 100 05/07/23 03:30 78 18 128/77 05/07/23 03:28 68 100 05/07/23 03:23 79 100 05/07/23 03:18 80 100 05/07/23 03:16 78 131/77 05/07/23 03:13 86 100 05/07/23 03:08 67 100 05/07/23 03:00 16 05/07/23 03:00 16 05/07/23 03:03 66 100 05/07/23 02:59 66 117/68 05/07/23 02:58 73 100 05/07/23 02:53 64 100 05/07/23 02:48 67 99 05/07/23 02:45 64 119/62 05/07/23 02:43 66 100 05/07/23 02:38 67 100 05/07/23 02:33 75 100 05/07/23 02:30 67 18 121/73 05/07/23 02:28 74 100 05/07/23 02:23 77 100 05/07/23 02:18 72 100 05/07/23 02:00 18 05/07/23 02:00 18 05/07/23 02:15 72 122/71 05/07/23 02:10 97.9 F 05/07/23 02:13 79 100 05/07/23 02:08 94 H 100 05/07/23 02:03 75 100 05/07/23 01:58 60 100 05/07/23 01:59 79 118/76 05/07/23 01:53 83 100 05/07/23 01:48 72 100 05/07/23 01:44 68 113/69 05/07/23 01:43 63 99 05/07/23 01:38 69 100 05/07/23 01:30 18 05/07/23 01:30 18 07/10/23 01:33 69 100 05/07/23 01:31 71 112/67 05/07/23 01:28 73 98 05/07/23 01:23 76 97 05/07/23 01:18 63 98 05/07/23 01:14 80 114/65 05/07/23 01:13 79 100 05/07/23 01:08 88 100 05/07/23 01:06 73 93 05/07/23 00:55 18 05/07/23 00:55 18 05/07/23 01:03 91 H 98 05/07/23 01:01 88 120/66 05/07/23 00:58 82 98 05/07/23 00:53 75 98 05/07/23 00:48 88 97 05/07/23 00:44 73 116/65 05/07/23 00:43 81 96 05/07/23 00:25 18 05/07/23 00:25 18 05/07/23 00:40 20 05/07/23 00:40 20 05/07/23 00:00 20 05/07/23 00:00 20 05/07/23 00:10 18 05/07/23 00:10 18 05/07/23 00:38 97 H 96 05/07/23 00:05 97.9 F 18 05/07/23 00:33 98 H 97 05/07/23 00:30 86 118/70 05/07/23 00:28 85 100 05/07/23 00:23 106 H 98 05/07/23 00:18 96 H 99 05/07/23 00:13 98 05/07/23 00:13 99 H 05/07/23 00:13 91 H 127/77 05/07/23 00:08 95 H 99 05/07/23 00:07 87 130/74 05/07/23 00:03 107 H 99 05/07/23 00:01 89 121/71 05/06/23 23:58 85 99 05/06/23 23:59 90 128/76 05/06/23 23:57 82 134/77 05/06/23 23:54 85 140/79 05/06/23 23:53 89 100 05/06/23 23:48 95 H 100 05/06/23 23:43 96 H 100 05/06/23 23:38 91 H 100 05/06/23 23:33 87 100 05/06/23 23:28 89 100 05/06/23 23:23 97 H 100 05/06/23 23:19 80 132/84 05/06/23 23:18 82 100 05/06/23 21:35 98.6 F 05/06/23 19:47 93 H 131/84 Transfer of Care Handoff Completed per policy Notes Mental Status: alert / awake / arousable and participated in evaluation Nausea / Vomiting: adequately controlled Pain: adequately controlled Airway Patency, RR, SpO2: stable & adequate BP & HR: stable & adequate Hydration State: stable & adequate Neuraxial Anesthesia: was administered and sensory block is resolving Anesthetic Complications: no major complications apparent and Pt Satisfied with anesthetic care
[2023-05-07] MEDS ORDERED: BENZOCAINE 20% AER SPR 82.5 GM CAN EXT PRN (18:56)
[2023-05-07] MEDS ORDERED: HYDROCORTISONE ACETATE 25 MG SUPP PR PRN (18:56)
[2023-05-07] MEDS ORDERED: DIPHTHERIA/TETANUS/PERTUSSIS Vaccine (Tdap, Age 7+yrs) 0.5mL SYR/VL IM ONE (18:56)
[2023-05-07] MEDS ORDERED: SENNA 8.6 MG TAB PO PRN (18:56)
[2023-05-07] MEDS ORDERED: MAGNESIUM HYDROXIDE SUSP 30 ML UDC PO PRN (18:56)
[2023-05-07] MEDS: OXYTOCIN 20 UNITS in LACTATED RINGER'S 1,000 ML IV SCH (20:29)
[2023-05-07] MEDS: DOCUSATE SODIUM 100 MG CAP PO SCH (21:33)
[2023-05-07] MEDS: SIMETHICONE 80 MG CHEW PO SCH (21:33)
[2023-05-07 21:41] LABS: Base Excess Cord Venous Blood -6.9 mEq/L (-7.7-1.9); Cord Venous Blood HCO3 21 mmol/L (18.4-26.8); Cord Venous Blood PCO2 50 mmHg (30.4-57.2); Cord Venous Blood PO2 16 mmHg (14.1-43.3); Cord Venous Blood pH 7.23 (7.20-7.44); O2 Saturation Cord Venous Bld < 60.0 % (<68)
[2023-05-07] MEDS: KETOROLAC 30 MG/ML VIAL IV PRN (22:13)
[2023-05-08] MEDS: OXYTOCIN 20 UNITS in LACTATED RINGER'S 1,000 ML IV SCH (05:05)
[2023-05-08] MEDS ORDERED: CITRIC ACID/SODIUM CITRATE 15 ML UDC PO SCH (06:00)
[2023-05-08 07:02] LABS: Basophils # (auto) 0.03 K/uL (0-0.2); Basophils % (auto) 0.2 %; Eosinophils # (auto) 0.07 K/uL (0-0.50); Eosinophils % (auto) 0.4 %; Hematocrit (blood only) 35.5 % (37.0-47.0); Immature Granulocytes # (auto) 0.09 K/uL (0.01-0.20); Immature Granulocytes % (auto) 0.5 %; Lymphocytes # (auto) 1.07 K/uL (1.2-3.4); Lymphocytes % (auto) 6.4 %; Mean Corpuscular Hgb Conc 33.8 g/dL (32.0-36.0); Mean Corpuscular Volume 82.8 fL (80.0-100.0); Monocytes # (auto) 0.84 K/uL (0.11-0.59); Neutrophils # (auto) 14.61 K/uL (1.40-6.50); Neutrophils % (auto) 87.5 %; Platelet Count 199 K/uL (130-400); RDW Coefficient of Variation 14.9 % (11.5-14.5); RDW Standard Deviation 45.1 fL (36.4-46.3); Red Blood Count 4.29 M/uL (4.20-5.40); White Blood Count 16.71 K/ul (4.8-10.8)
--- NOTE | 2023-05-08 07:16 | Obstetrical Progress Note ---
Date of Service <Summer Graham DO [facility] - Last Filed: 05/08/23 07:59> May 08, 2023 Assessment & Plan <Summer Graham DO [facility] - Last Filed: 05/08/23 07:59> (1) care following delivery: Pt doing well today. Pain well controlled with prn analgesics. Parmar to be removed as per protocol. Will restart home levothyroxine and metoprolol. Routine care; OOB, ambulation, diet progression as tolerated. After discharge will have 6 week follow-up with Dr. Gaxiola. <Marian Seay MD, FACOG - Last Filed: 05/08/23 08:08> (1) care following delivery: Subjective <Summer Graham DO [facility] - Last Filed: 05/08/23 07:59> Pt is a 38 y/o female who is POD 1 following delivery at 40 4/7 weeks. She states that she feels fine this morning. She notes abdominal cramping with movement but 2/10 pain well managed on analgesics when resting. Parmar catheter in place. She has not yet ambulated on her own since the procedure. She has had clear liquids without nausea or vomiting. Not passing gas and no bowel movement since her c section. Has some persistent lochia with some improvement this morning. Currently breast feeding. Constitutional: no fever, no chills or no sweats Respiratory: no dyspnea Cardiovascular: no chest pain or no palpitations Breast: no breast pain Genitourinary (female): no dysuria Neurologic: no headache(s) no changes in vision, no headaches Physical Exam <Summer Gladys DO [facility] - Last Filed: 05/08/23 07:59> General: Alert, oriented. No acute distress. Cardiac: Regular rate and rhythm, no murmurs, rubs, or gallops. Respiratory: Clear to auscultation bilaterally a/p, no wheezes/rales/rhonchi. No increased work of breathing. Symmetrical chest rise. No respiratory distress. Abdomen: Soft, nontender, nondistended. Bowel sounds present. Uterus: Uterine fundus firm. Surgical incision covered by alejandro dressing. Lower extremities: No lower extremity edema or swelling. No deep calf pain. Aviva's negative bilaterally. Results & Data <Summer Guzman, DO - Last Filed: 05/08/23 07:59> Vital Signs (Past 12 Hours) Vital Signs Temp Pulse Pulse Resp BP BP Pulse Ox 05/08/23 04:35 16 96 05/08/23 03:35 15 95 05/08/23 02:35 16 98 05/08/23 05:35 16 96 05/08/23 01:35 15 96 05/08/23 03:15 36.9 C 102 H 17 133/86 99 05/08/23 00:35 36.7 C 95 H 16 134/88 99 05/08/23 00:35 16 99 05/07/23 23:35 16 99 05/07/23 22:35 16 96 05/07/23 21:35 15 98 05/07/23 20:35 17 99 05/07/23 20:35 05/07/23 20:35 36.6 C 96 H 17 136/87 99 05/07/23 20:40 84 97 05/07/23 20:35 106 H 100 05/07/23 20:36 18 05/07/23 20:36 100 H 18 136/87 05/07/23 20:30 94 H 98 05/07/23 20:25 82 100 05/07/23 20:20 96 H 100 05/07/23 20:19 95 H 94 05/07/23 20:15 76 95 05/07/23 20:12 78 94 05/07/23 20:10 77 97 05/07/23 20:05 79 97 05/07/23 20:06 85 18 133/73 05/07/23 20:00 95 05/07/23 20:00 81 05/07/23 20:00 83 94 05/07/23 19:55 78 96 05/07/23 19:50 78 95 05/07/23 19:49 83 94 05/07/23 19:45 77 96 05/07/23 19:40 81 94 05/07/23 19:39 81 95 05/07/23 19:35 75 132/76 05/07/23 19:34 77 94 05/07/23 19:29 75 95 05/07/23 19:24 72 96 05/07/23 19:25 72 18 130/73 05/07/23 19:19 81 98 05/07/23 19:15 80 18 130/72 05/07/23 19:14 77 96 O2 Del Method 05/08/23 04:35 05/08/23 03:35 05/08/23 02:35 05/08/23 05:35 05/08/23 01:35 05/08/23 03:15 Room Air 05/08/23 00:35 Room Air 05/08/23 00:35 05/07/23 23:35 05/07/23 22:35 05/07/23 21:35 05/07/23 20:35 05/07/23 20:35 Room Air 05/07/23 20:35 Room Air 05/07/23 20:40 05/07/23 20:35 05/07/23 20:36 05/07/23 20:36 05/07/23 20:30 05/07/23 20:25 05/07/23 20:20 05/07/23 20:19 05/07/23 20:15 05/07/23 20:12 05/07/23 20:10 05/07/23 20:05 05/07/23 20:06 05/07/23 20:00 05/07/23 20:00 05/07/23 20:00 05/07/23 19:55 05/07/23 19:50 05/07/23 19:49 05/07/23 19:45 05/07/23 19:40 05/07/23 19:39 05/07/23 19:35 05/07/23 19:34 05/07/23 19:29 05/07/23 19:24 05/07/23 19:25 05/07/23 19:19 05/07/23 19:15 05/07/23 19:14 <Marian Seay MD, FACOG - Last Filed: 05/08/23 08:08> Co-Signing Physician Notes Resident Physician Supervision Note: I was present with Dr. Guzman during the history and exam. I discussed the case with the resident and agree with the findings and plan as documented in the note. Any exceptions or clarifications are listed here: [None] Documented By: Marian Seay MD, FACOG
[2023-05-08] MEDS: DOCUSATE SODIUM 100 MG CAP PO SCH ×2 (07:55→20:30)
[2023-05-08] MEDS: SIMETHICONE 80 MG CHEW PO SCH ×3 (07:55→20:31)
[2023-05-08] MEDS: FERROUS SULFATE 325 MG TAB PO SCH (07:55)
[2023-05-08] MEDS: PRENATAL VITAMIN 1 TAB PO SCH (07:55)
[2023-05-08] MEDS: KETOROLAC 30 MG/ML VIAL IV PRN (08:24)
[2023-05-08] MEDS ORDERED: METOPROLOL TARTRATE 25 MG TAB PO SCH (09:00)
[2023-05-08] MEDS ORDERED: diphenhydrAMINE Capsule 25 MG CAP PO PRN (11:48)
[2023-05-08] MEDS ORDERED: KETOROLAC 30 MG/ML VIAL IV PRN (11:48)
[2023-05-08] MEDS ORDERED: diphenhydrAMINE 50 MG/ML VIAL IV PRN (11:48)
[2023-05-08] MEDS ORDERED: PROMETHAZINE HCL 25 MG in SODIUM CHLORIDE 0.9% 50 ML IV PRN (11:48)
[2023-05-08] MEDS: IBUPROFEN 600 MG TAB PO PRN ×2 (14:27→20:26)
[2023-05-08] MEDS: oxyCODONE/ACETAMINOPHEN 5mg/325mg TAB PO PRN ×2 (15:39→20:26)
[2023-05-08] MEDS ORDERED: bisacodyL 5 MG TABEC PO SCH (20:00)
[2023-05-08] MEDS: METOPROLOL TARTRATE 25 MG TAB PO SCH (20:30)
[2023-05-09] MEDS: IBUPROFEN 600 MG TAB PO PRN ×5 (00:11→20:35)
[2023-05-09] MEDS: oxyCODONE/ACETAMINOPHEN 5mg/325mg TAB PO PRN ×6 (00:11→22:40)
--- NOTE | 2023-05-09 05:41 | Obstetrical Progress Note ---
Date of Service <Summer Graham DO [place] - Last Filed: 05/09/23 07:08> May 09, 2023 Assessment & Plan <Summer Graham DO [facility] - Last Filed: 05/09/23 07:08> (1) care following delivery: Pt doing well today. Pain well controlled with prn analgesics. Routine care; OOB, ambulation, continue regular OB diet as tolerated. Plan for discharge later today. After discharge will have 6 week follow-up with Dr. Gaxiola. <Scarlett Colbert, - Last Filed: 05/09/23 07:15> (1) care following delivery: Pt doing well today. Pain well controlled with prn analgesics. Routine care; OOB, ambulation, continue regular OB diet as tolerated. Plan for discharge later today. After discharge will have 6 week follow-up with Dr. Seay. Subjective <Summer Graham DO [facility] - Last Filed: 05/09/23 07:08> Pt is a 38 y/o female who is POD 2 following delivery after failed vacuum delivery at 40 4/7 weeks. She states that she overall feels a bit better today compared to yesterday. She notes that today she has more abdominal cramping and gas pains, for which she has been taking oxy/acetaminophen q4h to control the discomfort with ambulating. Voiding on own since seth removed yesterday with 800 mL output noted. Tolerating meals overnight and able to ambulate on own. She is passing gas, but has not yet had a bowel movement since the csection. Has some lochia with some improvement this morning. Currently breast feeding. Constitutional: no fever, no chills or no sweats Respiratory: no dyspnea Cardiovascular: no chest pain or no palpitations Breast: no breast pain Genitourinary (female): no dysuria Neurologic: no headache(s) no changes in vision, no headaches Physical Exam <Summer Guzman DO - Last Filed: 05/09/23 07:08> General: Alert, oriented. No acute distress. Cardiac: Regular rate and rhythm, no murmurs, rubs, or gallops. Respiratory: Clear to auscultation bilaterally a/p, no wheezes/rales/rhonchi. No increased work of breathing. Symmetrical chest rise. No respiratory distress. Abdomen: Soft, nontender, nondistended. Bowel sounds present. Uterus: Uterine fundus firm. Surgical incision covered by seema dressing, which is intact and working appropriately without leaking. Lower extremities: No lower extremity edema or swelling. No deep calf pain. Aviva's negative bilaterally. Results & Data <Summer Guzman DO - Last Filed: 05/09/23 07:08> Vital Signs (Past 12 Hours) Vital Signs Temp Pulse Resp BP Pulse Ox O2 Del Method 05/09/23 00:16 36.8 C 92 H 18 103/70 99 Room Air 05/08/23 20:13 36.7 C 104 H 20 119/81 99 Room Air <Scarlett Colbert, - Last Filed: 05/09/23 07:15> Co-Signing Physician Notes Resident Physician Supervision Note: I interviewed and examined the patient. Discussed with Dr. Guzman and agree with findings and plan as documented in the note. Any exceptions or cl arifications are listed here: POD#2 would like to go home. Will recheck H/H at lunchtime. Rx Percocet #20tabs sent to [facility]. Reviewed followup plans - 7d for Seema removal, 6w for . Documented By: Scarlett Colbert DO Resident Activity Tracking <Summer Guzman DO - Last Filed: 05/09/23 07:08> Resident Involvement: Resident Care Provided Care Provided: OB Delivery
[2023-05-09 06:26] LABS: Hematocrit (blood only) 30.7 % (37.0-47.0); Hemoglobin 10.4 g/dl (12.0-16.0)
[2023-05-09] MEDS ORDERED: POLYETHYLENE (MIRALAX) 17 GM PACK PO PRN (07:10)
[2023-05-09] MEDS: LEVOTHYROXINE SODIUM 50 MCG TABLET PO SCH (07:30)
[2023-05-09] MEDS: PRENATAL VITAMIN 1 TAB PO SCH (08:50)
[2023-05-09] MEDS: SIMETHICONE 80 MG CHEW PO SCH ×5 (08:50→20:34)
[2023-05-09] MEDS: FERROUS SULFATE 325 MG TAB PO SCH (08:50)
[2023-05-09] MEDS: DOCUSATE SODIUM 100 MG CAP PO SCH ×2 (08:51→20:34)
[2023-05-09] MEDS: OXYTOCIN 20 UNITS in LACTATED RINGER'S 1,000 ML IV SCH (10:47)
--- NOTE | 2023-05-09 11:53 | Psychiatric Consultation ---
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 No evidence for current OCD symptoms. Discussed medication treatment options in detail. Discussed risks, benefits and alternatives. Recommend sertraline for post- anxiety and reviewed safety data for breast feeding. Reviewed side effects including but not limited to: GI, MARRERO, vivid dreaming, sexual side effects. Discussed importance of trying to preserve sleep as much as possible and get support from her partner especially overnight to help with this. Encouragingly her has 6 weeks of leave from work and will be able to help support Bella with overnights and care. (1) anxiety: Plan -Option to start sertraline 50mg daily for post- anxiety, this could be increased to 100mg daily in 4-6 weeks if no benefits seen or if symptoms worsen -Discussed trying to preserve sleep as feasible with goal of 4-6 hours of consecutive sleep when possible to reduce likelihood of anxiety worsening and to help with mood improvement -Psych liason to provide resource booklet should she become interested in therapy in the future or outpatient psychiatry -Optional additional resource: [facility] Mental Health Hotline: 2-689-PJS-MAMA ( ) -Discussed with Dr. Montes De Oca Psych History Identifying Data 38 yo woman who lives in [place] with her with a history of recurrent PVCs and hypothyroidism admitted to the OB service s/p delivery of a healthy infant boy. Psychiatry consulted for recommendations regarding emotional distress and anxiety. Chief Complaint "It's just difficult to know how I'm going to care for him when I'm recovering myself". History of Present Illness Bella is joined by her at bedside for our interview and she is comfortable with him remaining present. She describes always being an emotional person who cries easily when she "happy or sad or excited or nervous" but that some of her tearfulness has become amplified during and now the post- period. She denies having any significant anxiety until this when she developed more cardiac symptoms and has worried about her heart and health more in general. These health related fears were somewhat further increased by needing a and now dealing with post-op pain management and constipation issues. She also worries about being able to meet her baby's breast feeding and other needs as she recovers. She has been tearful per RN notes but also smiles briefly during our interview and shows appropriate range of emotions. She denies any symptoms of depression, endorses symptoms of anxiety. Denies SI. No history of prior suicide attempts, psychiatric treatment nor psychiatric hospitalization. She feels her is a very good support and he will also have some time off from work to be at home. She is not interested in immediate outpatient therapy but agrees that having the resources available would be helpful in case she decides she's interested in the future. Allergies Allergy/AdvReac Type Severity Reaction Status Date / Time No Known Drug Allergies Allergy Verified 05/03/23 08:30 Home Medications Medication Instructions Recorded Confirmed Type prenat.vits,camden,[id number] PO 07/17/22 05/03/23 History cholecalciferol (vitamin D3) PO 09/14/22 05/03/23 History levothyroxine PO 09/14/22 05/03/23 History magnesium PO 02/09/23 05/03/23 History metoprolol tartrate PO PRN PVC's 02/09/23 05/03/23 History potassium chloride PO 02/09/23 05/03/23 History aspirin 81 mg tablet,delayed 81 mg PO DAILY 02/23/23 05/06/23 History release (Adult Low Dose Aspirin) oxycodone-acetaminophen 5 mg-325 1 tab PO Q6H PRN pain #20 tabs 05/09/23 Rx mg tablet (Percocet) Patient History Surgical History H/O wisdom tooth extraction Hx of cholecystectomy Family History Other Heart disease Denies family history of Ovarian cancer Breast cancer Colorectal cancer Social History Smoking Status: Never smoker Do You Dip or Chew Tobacco: No; Hx Alcohol Use: No Hx Substance Use: No Preferred Language: Swazi Communication Ability: Effective Shuttle Spotter Required: No Beliefs That Will Affect Care: None marital status: marital status details: Prashant (42) [phone] Current Living Situation: Spouse Current Living Situation Comment: lives with spouse, 1 dog. 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 Feels Safe at Home: Yes Assistive Devices: None Physical Exam Psychiatric: Orientation: alert and oriented x 3 Apperance: appropriately dressed and appropriately groomed Eye Contact: good eye contact Motor Behavior: no abnormal motor movements Speech: normal rate/rhythm/volume of speech Affect: + anxious affect and + tearful affect Mood: + anxious mood Thought Process: goal directed thought process Thought Content: reality based without delusions Suicidal Thoughts: denies suicidal thoughts Homicidal Thoughts: denies homicidal thoughts Hallucinations: no auditory hallucinations and no visual hallucinations Cognition: attention grossly intact and language grossly intact Estimated Intelligence: consistent with education level Insight: good insight Judgment: + fair judgement Vital Signs (Past 24 Hours): Last Vital Signs Temp 36.7 C 05/09/23 08:30 Pulse 98 H 05/09/23 08:30 Resp 18 05/09/23 08:30 BP 118/79 05/09/23 08:30 Pulse Ox 100 05/09/23 08:30 O2 Del Method Room Air 05/09/23 08:30 Review of Systems All systems reviewed & are unremarkable except as noted in HPI & below Results & Data (PSY) Diagnostic Findings normal QTc on EKG in 01/2023 Medications Administered Docusate Sodium (Docusate Sodium 100 Mg Cap) 100 mg PO BID [facility] Stop: 06/08/23 08:59 Last Admin: 05/09/23 08:51 Dose: 100 mg Documented By: ENEDINA Ferrous Sulfate (Ferrous Sulfate 325 Mg Tab) 325 mg PO DAILY@08 [facility] Stop: 06/07/23 07:59 Last Admin: 05/09/23 08:50 Dose: 325 mg Documented By: Admin: 05/08/23 07:55 Dose: 325 mg Documented By: LAM Ibuprofen (Ibuprofen 600 Mg Tab) 600 mg PO Q4H PRN PRN Reason: Pain Stop: 06/06/23 18:55 Last Admin: 05/09/23 09:51 Dose: 600 mg Documented By: Admin: 05/09/23 03:52 Dose: 600 mg Documented By: Admin: 05/09/23 00:11 Dose: 600 mg Documented By: Admin: 05/08/23 20:26 Dose: 600 mg Documented By: Admin: 05/08/23 14:27 Dose: 600 mg Documented By: LAM Levothyroxine Sodium (Levothyroxine Sodium 50 Mcg Tablet) 50 mcg PO DAILYBB [facility] Stop: 06/08/23 06:29 Last Admin: 05/09/23 07:30 Dose: 50 mcg Documented By: ENEDINA Metoprolol Tartrate (Metoprolol Tartrate 25 Mg Tab) 12.5 mg PO HS JENY Stop: 06/07/23 20:59 Last Admin: 05/08/23 20:30 Dose: 12.5 mg Documented By: KRISTAL Oxycodone/Acetaminophen (Oxycodone/Acetaminophen 5mg/325mg Tab) 1 - 2 tab PO Q4H PRN PRN Reason: Pain Stop: 05/22/23 14:06 Last Admin: 05/09/23 08:50 Dose: 1 tab Documented By: Admin: 05/09/23 03:53 Dose: 1 tab Documented By: Admin: 05/09/23 00:11 Dose: 1 tab Documented By: Admin: 05/08/23 20:26 Dose: 1 tab Documented By: Admin: 05/08/23 15:39 Dose: 1 tab Documented By: LYNDSAY Prenat Multivit/Technical Applications Specialist/Iron/Folic Ac ( Vitamin 1 Tab) 1 tab PO DAILY@08 [facility] Stop: 06/07/23 07:59 Last Admin: 05/09/23 08:50 Dose: 1 tab Documented By: Admin: 05/08/23 07:55 Dose: 1 tab Documented By: LAM Simethicone (Simethicone 80 Mg Chew) 80 mg PO DAILY@08,13,17,21 [facility] Stop: 06/06/23 20:59 Last Admin: 05/09/23 10:48 Dose: Not Given Documented By: Admin: 05/09/23 08:50 Dose: 80 mg Documented By: Admin: 05/08/23 20:31 Dose: 80 mg Documented By: Admin: 05/08/23 12:08 Dose: 80 mg Documented By: Admin: 05/08/23 07:55 Dose: 80 mg Documented By: Admin: 05/07/23 21:33 Dose: 80 mg Documented By: LAZARUS Coding Level of Care Code 02024 IN/OBS CONSULT LVL 4,60M Diagnoses anxiety O99.345; F41.8 Time Spent (min) 70
[2023-05-09 12:27] LABS: Hematocrit (blood only) 34.1 % (37.0-47.0); Hemoglobin 11.4 g/dl (12.0-16.0)
[2023-05-09] MEDS ORDERED: bisacodyL 10 MG SUPP PR PRN (18:50)
[2023-05-09] MEDS: METOPROLOL TARTRATE 25 MG TAB PO SCH (20:34)
[2023-05-09] MEDS ORDERED: SERTRALINE HCL 50 MG TABLET PO ONE (21:30)
[2023-05-10] MEDS: IBUPROFEN 600 MG TAB PO PRN ×2 (00:14→08:08)
[2023-05-10] MEDS: oxyCODONE/ACETAMINOPHEN 5mg/325mg TAB PO PRN ×2 (05:39→11:28)
[2023-05-10] MEDS: LEVOTHYROXINE SODIUM 50 MCG TABLET PO SCH (05:40)
--- NOTE | 2023-05-10 07:23 | Obstetrical Progress Note ---
Date of Service <Summer Guzman DO - Last Filed: 05/10/23 07:23> May 10, 2023 Assessment & Plan <Summer Guzman DO - Last Filed: 05/10/23 07:23> (1) care following delivery: Pt is doing better today. She is eating well and voiding well. She is ambulating more and appears in better spirits today. Pain well controlled with percocet. Routine care; OOB, ambulation, diet progression as tolerated. After discharge will have 6 week follow-up with Dr. Gaxiola. <Evie Montes De Oca MD, FACOG - Last Filed: 05/10/23 08:35> (1) care following delivery: Subjective <Summer Guzman DO - Last Filed: 05/10/23 07:23> Pt is a 38 y/o female who is POD#3 following delivery for arrest of descent at 40 4/7 weeks. Pt states she is feeling better today than yesterday. Her gas pain/cramps have improved. She has been tolerating regular diet without nausea or vomiting. She states that her pain never gets above 5/10, but that she is still taking the percocet roughly q4h. She has been up walking around more and has been passing gas and voiding on own without issues. No bowel movement since the procedure. No further questions or complaints at this time. She is breast feeding and it has been going well. Constitutional: no fever, no chills or no sweats Respiratory: no dyspnea Cardiovascular: no chest pain or no palpitations Breast: no breast pain Genitourinary (female): no dysuria Neurologic: no headache(s) no changes in vision, no headaches Physical Exam <Summer Guzman DO - Last Filed: 05/10/23 07:23> General: Alert, oriented. No acute distress. Cardiac: Regular rate and rhythm, no murmurs, rubs, or gallops. Respiratory: Clear to auscultation bilaterally, no wheezes/rales/rhonchi. No increased work of breathing. Symmetrical chest rise. No respiratory distress. Abdomen: Soft, nontender, nondistended. Bowel sounds active. Uterus: Uterine fundus firm, TEDDY dressing in place with good seal. Lower extremities: Mild lower extremity edema noted. No deep calf pain. Results & Data <Summer Guzman DO - Last Filed: 05/10/23 07:23> Vital Signs (Past 12 Hours) Vital Signs Temp Pulse Resp BP Pulse Ox O2 Del Method 05/10/23 00:15 36.7 C 81 18 128/84 97 Room Air 05/09/23 19:24 36.5 C 100 H 20 138/92 100 Room Air <Evie Montes De Oca MD, FACOG - Last Filed: 05/10/23 08:35> Co-Signing Physician Notes Resident Physician Supervision Note: I was present with Dr. Guzman during the history and exam. I discussed the ale e with the resident and agree with the findings and plan as documented in the note. Any exceptions or clarifications are listed here: stable doing well this am. taking zoloft. teddy dressing. ready to go home. instructions reviewed. f/u one wk with teddy dressing and then 2wks for mood check. rh pos, ri, . Documented By: Evie Montes De Oca MD, FACOG Resident Activity Tracking <Summer Guzman DO - Last Filed: 05/10/23 07:23> Resident Involvement: Resident Care Provided Care Provided: OB Delivery
[2023-05-10] MEDS: FERROUS SULFATE 325 MG TAB PO SCH (08:08)
[2023-05-10] MEDS: PRENATAL VITAMIN 1 TAB PO SCH (08:08)
[2023-05-10] MEDS: SIMETHICONE 80 MG CHEW PO SCH (08:08)
[2023-05-10] MEDS: DOCUSATE SODIUM 100 MG CAP PO SCH (08:08)
== END 2023-05-10 11:59 | disposition home or self-care (01) | DRG 786 ==
LOC: OPB 17:36 → 4S1 17:41 → 4E2 05-07 21:04